=== PATIENT | female | born 1995 ===

== ENCOUNTER → 2020-10-23 | Outpatient (CLI) | payer MEDICAID ==
[~2020-10-23] MED LIST: FLINTSTONES1 CTB; IBU600 MG PO
== END ==
LOC: ZCOL.LAB 08:00
DX: Z20.828 Contact with and (suspected) exposure to other viral communicable diseases (principal)

== ENCOUNTER 2020-10-28 07:11 | Inpatient (IN) | payer MEDICAID ==
[~2020-10-28] VITALS: Ht 167.6 cm; Wt 132.3 kg
[2020-10-28] VITALS (46 sets, daily range): BP systolic 106–164; BP diastolic 37–97; PULSE 70–116; TEMP 97.7–99.5
--- NOTE | 2020-10-28 07:20 | NUR ---
0720-G3L1 39.4 week Patient of Roles ambulatory to LR 5 for scheduled induction of labor. Assisted into gowna nd placed on EFM. Patient reports good movement and denies LOF or VB. Assessment complete and reviewed consents and sigened. 0750-IV to right wrist. Blood collected and sent to lab per orders, LR and anitbiotics infusing per orders.
[2020-10-28] MEDS ORDERED: FLINTSTONES1 CTB (07:34)
--- NOTE | 2020-10-28 08:20 | NUR ---
0820- Roles on unit. Reviews FHR jenelle. Updated on elevated admitting BP and reviewed current VS. No new orders. In to see patient and discuss plan of care with patient.
[2020-10-28 08:29] LABS: BASO % 0.3 % (0.0-2.0); EOS # 0.1 (0.0-0.7); EOS % 0.7 % (0-4.0); GRAN # 9.3 (1.4-6.5); GRAN % 76.1 % (42.2-75.2); HEMATOCRIT 37.1 % (37.0-47.0); HEMOGLOBIN 12.4 g/dl (12.5-16.0); LYMPH # 2.3 (1.2-3.4); LYMPH % 18.5 % (20.0-51.0); MEAN CELL VOLUME 93 fl (80.0-100.0); MEAN CORPUSCULAR HEMOGLOBIN 31 pg (27.0-31.0); MEAN CORPUSCULAR HGB CONC 33 g/dl (33.0-37.0); MEAN PLATELET VOLUME 9.6 fl (7.4-10.4); MONO # 0.4 (0.1-0.6); MONO % 3.3 % (1.7-9.3); PLATELET COUNT 236 K/mm3 (130-400); RED BLOOD COUNT 4.01 M/mm3 (4.10-5.30); REDCELL DISTRIBUTION WIDTH-CV 14.3 % (11.5-14.5)
[2020-10-28 08:44] LABS: TRICYCLIC ANTIDEPRESS URINE NEGATIVE
--- NOTE | 2020-10-28 09:30 | NUR ---
0925 Difficulty maintaining tracing due to maternal positioning and habitas. RN at bedside adjusting monitors.
--- NOTE | 2020-10-28 09:55 | NUR ---
0955-Patient off EFM to bathroom. Easily voids 200ml. Returns to bed WL with peanut ball. RN adjusts EFM with intermittent FHR tracing from [id number] back WR and changed EFM straps. RN continues to adjust EFM to maintain FHR tracing.
--- NOTE | 2020-10-28 11:15 | NUR ---
1115-RN at bedside frequently readjusting EFM. Difficulty maintaining FHR tracing due to maternal habitus and positioning. 1125-Dr. Shepherd to unit. 1127-SVE by Dr. Shepherd, /-3, AROM clear fluid. FSE placed by . Repostioned WL and deirdre care provided.
--- NOTE | 2020-10-28 11:52 | NUR ---
1152-Patient sitting upright on bedside for epidural placement. 1210-Test dose by NUZHAT Clifford. Patient tolerated placement well. Updated on plan of care and safety. 1220-Repositioned WL with peanutball.
--- NOTE | 2020-10-28 16:24 | NUR ---
1624-Started pushing with patient per MD order. Patient moves vertex well.
--- NOTE | 2020-10-28 16:58 | NUR ---
165-Requested MD for delivery. 170- Roles on unit, patient set up for delivery. 170-Patient pushes with contraction with MD at bedside. Moves vertex well. 171-Spontaneous delivery of infant head immediately followed by body. Viable male nares and mouth bulb suctioned by MD. Cord clamped x2 and cut by father of baby. to mothers abdomen. Care of infant assumed by SheridanRN nursery RN. Apgars 8/9/10. 171-Spontaneous delivery of intact placenta by MD. Lochia WNL. EBL 200ml. Pitocin bolus started per MD orders. Fundal massage firm. Small skin tag removed by MD. Silver nitrate applied to removal by MD. No sutures required for 1st degree perineal lac per MD. Tyra care provided. Updated patient on safety and plan of care.
--- NOTE | 2020-10-28 19:35 | NUR ---
Pt up to the bathroom with standby assist and without complications. Tyra-care done. Pt transferred to room 208 ambulatory. Oriented to room, bed and call light within reach. Plan of care reviewed with pt and boyfriend at the bedside.
[2020-10-29 01:30] VITALS: BP 134/62; PULSE 92; TEMP 97.8
[2020-10-29 05:00] VITALS: BP 122/54; PULSE 89; TEMP 97.9
[2020-10-29 08:00] VITALS: BP 139/66; PULSE 84; TEMP 97.4
--- NOTE | 2020-10-29 08:00 | NUR ---
Rests in bed eating breakfast. Denies any needs at this time.
[2020-10-29] MEDS ORDERED: IBU600 MG PO (08:41)
--- NOTE | 2020-10-29 09:27 | NUR ---
Initial visit; Parents thanked Hand Cutter for offering congratulations and God's blessings for the of their son. Hand Cutter thanked family for choosing [facility].
--- NOTE | 2020-10-29 10:59 | NUR ---
JONES Consult: SW recieved consult for potential substance use. SW reviewed lab and foundno result indicating substance use. JONES staffed with patients nurse Susanne to obtain report. Nurse indicated she does not have any concerns of inappropriateness. JONES met with patient and baby in room. Patient reports that she resided locally at [facility] at the [facility]. Patient reports that she has a 4 year old son at home who is with her nieghbor friend. Patient reports that she is in a monogamous relationship with the FOB Rodney Ferguson . Patient reports that they do not reside together but the FOB isinvolved and supportive. Patient reports the best contact for her is [phone]. Patient denies having any open dcf cases other than food assistance. Patient reports that she has supplies. Patient denies any substance use. Patient reports that she recieves wic and plans to pump or breastfeed. Patient indicated that she has a car seat but it is used and a little dirty. SW educated patient about carseat expirations. Prompted her to check. Patient reports that babies diesel roller operator will be Dr. Fair. Patient reports that [facility] will [facility] with [facility]. Patient reports that use of [facility] for Medications. Patient indicated that she has transportation. Patient denies having any concerns with DME use or other services. No concern or cause reported for report. Nothing follows.
[2020-10-29 20:35] VITALS: BP 138/57; PULSE 87; TEMP 98
[2020-10-30 08:28] VITALS: BP 109/73; PULSE 83; TEMP 98.1
== END 2020-10-30 13:10 | disposition home or self-care (01) | DRG 807 ==
LOC: LDR 07:11 → OB 07:11
PROVIDERS: ADMIT Obstetrics & Gynecology
PROC: 10E0XZZ Delivery of Products of Conception, External Approach (ICD-10-PCS; principal; 2020-10-28)
PROC: 3E033VJ Introduction of Other Hormone into Peripheral Vein, Percutaneous Approach (ICD-10-PCS; 2020-10-28)
PROC: 10907ZC Drainage of Amniotic Fluid, Therapeutic from Products of Conception, Via Natural or Artificial Opening (ICD-10-PCS; 2020-10-28)
DX: O36.63X0 Maternal care for excessive fetal growth, third trimester, not applicable or unspecified (principal); Z37.0 Single live birth; O99.214 Obesity complicating childbirth; E66.9 Obesity, unspecified; Z3A.39 39 weeks gestation of pregnancy
CPT/HCPCS: J2540; J2590; J2795; J7120